=== PATIENT | female | born 1995 | race Caucasian/White ===

== ENCOUNTER 2017-01-25 23:52 | Emergency (ER) | payer SELFPAY ==
[~2017-01-25] VITALS: Ht 167.6 cm; Wt 116.1 kg
[~2017-01-25 23:52] MED LIST: CYCLOBENZAPRINE10 MG PO; IBUPROFEN600 MG PO; IBUPROFEN800 MG PO; LOW-OGESTREL1 EACH PO; ONDANSETRON HCL8 MG PO; PERCOCET 5-3251 EACH PO; SPRINTEC1 EACH PO
[2017-01-26] MEDS ORDERED: AMOXICILLIN875 MG PO (00:06)
== END 2017-01-26 00:23 | disposition home or self-care (01) ==
LOC: ED 23:52
DX: H66.93 Otitis media, unspecified, bilateral (principal); Z88.2 Allergy status to sulfonamides; Z79.899 Other long term (current) drug therapy
CPT/HCPCS: 99283

== ENCOUNTER 2017-05-06 14:52 | Emergency (ER) | payer OTHER ==
[~2017-05-06] VITALS: Ht 167.6 cm; Wt 120.2 kg
[~2017-05-06 14:52] MED LIST changes: +AMOXICILLIN875 MG PO
--- NOTE | 2017-05-07 14:27 | EKG ---
[facility] [address] [facility] [place] [address] Signed Normal sinus rhythm with sinus arrhythmia Normal ECG No previous ECGs available Confirmed by RODOLFO VELEZ MD ([id number]) on 05/07/2017 2:27:00 PM Electronically Signed By: RODOLFO VELEZ MD 05/07/17 1427 PATIENT NAME: SILVANA LUCIA Electrocardiogram DATE OF : [birth year] PHYSICIAN: RODOLFO VELEZ MD REPORT #: [id number] REPORT IS CONFIDENTIAL AND NOT TO BE RELEASED WITHOUT AUTHORIZATION
== END 2017-05-06 18:15 | disposition home or self-care (01) ==
LOC: ED 14:52
DX: R55 Syncope and collapse (principal); Z88.2 Allergy status to sulfonamides; Z79.2 Long term (current) use of antibiotics
CPT/HCPCS: 80053; 84703; 85025; 93005; 93010; 96374; 99284; J2405; J7030

== ENCOUNTER 2017-07-12 12:53 | Emergency (ER) | payer OTHER ==
[~2017-07-12] VITALS: Ht 167.6 cm; Wt 120.2 kg
[2017-07-12] MEDS ORDERED: NORCO 5-325 TA1 EACH PO (16:59)
== END 2017-07-12 17:09 | disposition home or self-care (01) ==
LOC: ED 12:53
DX: R10.31 Right lower quadrant pain (principal); R10.32 Left lower quadrant pain; Z88.2 Allergy status to sulfonamides
CPT/HCPCS: 74177; 80053; 81001; 83690; 84703; 85025; 96360; 99284; J7030; Q9967

== ENCOUNTER 2017-07-15 15:56 | Emergency (ER) | payer SELFPAY ==
[~2017-07-15] VITALS: Ht 167.6 cm; Wt 117.0 kg
[~2017-07-15 15:56] MED LIST changes: +NORCO 5-325 TA1 EACH PO
== END 2017-07-15 16:33 | disposition home or self-care (01) ==
LOC: ED 15:56
DX: S31.133A Puncture wound of abdominal wall without foreign body, right lower quadrant without penetration into peritoneal cavity, initial encounter (principal); Z88.2 Allergy status to sulfonamides; W22.8XXA Striking against or struck by other objects, initial encounter
CPT/HCPCS: 99282

== ENCOUNTER 2019-08-03 19:24 | Emergency (ER) | payer SELFPAY ==
[~2019-08-03] VITALS: Ht 167.6 cm; Wt 113.4 kg
== END 2019-08-03 23:58 | disposition home or self-care (01) ==
LOC: ED 19:24
DX: K92.1 Melena (principal); Z88.2 Allergy status to sulfonamides
CPT/HCPCS: 80053; 81001; 83735; 84703; 85025; 99284; C9803; U0002

== ENCOUNTER 2020-07-14 13:43 | Emergency (ER) | payer OTHER ==
[~2020-07-14] VITALS: Ht 167.6 cm; Wt 129.7 kg
== END 2020-07-14 16:59 | disposition home or self-care (01) ==
LOC: ED 13:43
DX: S93.402A Sprain of unspecified ligament of left ankle, initial encounter (principal); X50.1XXA Overexertion from prolonged static or awkward postures, initial encounter; Y99.0 Civilian activity done for income or pay; Z88.2 Allergy status to sulfonamides
CPT/HCPCS: 73610; 99283-25

== ENCOUNTER 2020-12-30 22:52 | Emergency (ER) | payer SELFPAY ==
[~2020-12-30] VITALS: Ht 167.6 cm; Wt 120.2 kg
[2020-12-30] MEDS ORDERED: METOCLOPRAMIDE10 MG PO (23:24)
== END 2020-12-31 02:46 | disposition home or self-care (01) ==
LOC: ED 22:52
DX: O20.0 Threatened abortion (principal); Z3A.08 8 weeks gestation of pregnancy; Z88.2 Allergy status to sulfonamides
CPT/HCPCS: 76801; 76817; 80053; 81001; 84702; 85025; 86900; 99284-25

== ENCOUNTER 2021-07-22 13:57 | Inpatient (IN) | payer BC ==
[~2021-07-22] VITALS: Ht 167.6 cm; Wt 140.6 kg
[~2021-07-22 13:57] MED LIST changes: +METOCLOPRAMIDE10 MG PO
--- NOTE | 2021-07-22 17:07 | NUR ---
COVID SWAB PERFORMED ON PATIENT WITH NO COMPLICATIONS NOTED
--- NOTE | 2021-07-23 04:06 | PR ---
[facility] [address] [place], [place] [address] Signed Progress Notes IP Datetime Report Generated by CPN: 07/23/2021 04:06 PROGRESS NOTES: [id number] Impression: Normal Progression of Labor; Non-reassuring Heart Rate Procedures: Intrauterine Pressure Catheter; Scalp Electrode Plan: Continue Present Management VITAL SIGNS: [id number] Vital Signs: Reviewed VS Notable Details: hypertension EXAM: [id number] Dilatation: 1.0 Effacement: 90 Station: -3 Contractions: irregular MEMBRANES: [id number] Comments: Suspect she has been having recurrent lates though contractions not picking up well even with the Beaver. Her BPs have been too low after epidural which I suspect began the decels. Her BP is now coming up but will require continued close observation. The IUPC and FSE will allow for better monitoring. FETUS A: [id number] FHR Baseline: 145 Variability: Moderate 6-25bpm Accelerations: 15X15 Decelerations: None FHR Category: Category I Presentation: Vertex Comments on Fetus A: no evidence of metabolic acidosis FETUS B: [id number] Signing Physician: Alexia Badillo MD Copies: ~ *Electronically Signed* 07/23/21 0406 ALEXIA BADILLO MD PATIENT NAME: SILVANA LUCIA PROGRESS NOTE DATE OF : 95 PHYSICIAN: ALEXIA BADILLO MD RPT #: [id number] REPORT IS CONFIDENTIAL AND NOT TO BE RELEASED WITHOUT AUTHORIZATION
--- NOTE | 2021-07-23 04:23 | PR ---
[facility] [address] [facility] [place], [place] [address] Signed Progress Notes IP Datetime Report Generated by CPN: 07/23/2021 04:23 PROGRESS NOTES: [id number] Impression: Non-reassuring Heart Rate Procedures: Intrauterine Pressure Catheter; Scalp Electrode Plan: Continue Present Management Other Plans: subq terb, position change VITAL SIGNS: [id number] Vital Signs: Reviewed VS Notable Details: hypertension EXAM: [id number] Dilatation: 3.0 Effacement: 90 Station: -3 Contractions: irregular MEMBRANES: [id number] Comments: Continuing to be non reasssuring. Will change position again and give subq terb to decrease contractions and allow status to improve. Will continue close observation. FETUS A: [id number] FHR Baseline: 145 Variability: Moderate 6-25bpm Accelerations: 15X15 Decelerations: None FHR Category: Category I Presentation: Vertex Comments on Fetus A: no evidence of metabolic acidosis FETUS B: [id number] Signing Physician: Alexia Badillo MD Copies: ~ *Electronically Signed* 07/23/21 0423 ALEXIA BADILLO MD PATIENT NAME: LEESA RUSSELL,SILVANA MYREE PROGRESS NOTE DATE OF : [birth year] PHYSICIAN: ALEXIA BADILLO MD RPT #: [id number] REPORT IS CONFIDENTIAL AND NOT TO BE RELEASED WITHOUT AUTHORIZATION
--- NOTE | 2021-07-23 04:37 | PR ---
[facility] [address] [place], [place] [address] Signed Progress Notes IP Datetime Report Generated by CPN: 07/23/2021 04:37 PROGRESS NOTES: [id number] Impression: Reassuring Heart Rate Procedures: Intrauterine Pressure Catheter; Scalp Electrode Plan: Continue Present Management Other Plans: subq terb, position change VITAL SIGNS: N1285572 Vital Signs: Reviewed VS Notable Details: hypertension EXAM: [id number] Dilatation: 3.0 Effacement: 90 Station: -3 Contractions: irregular MEMBRANES: [id number] Comments: status reassuring after the recent changes. Will continue close observation. FETUS A: [id number] FHR Baseline: 145 Variability: Moderate 6-25bpm Accelerations: 15X15 Decelerations: None FHR Category: Category I Presentation: Vertex Comments on Fetus A: no evidence of metabolic acidosis FETUS B: [id number] Signing Physician: Alexia Badillo MD Copies: ~ *Electronically Signed* 07/23/21 0437 ALEXIA BADILLO MD PATIENT NAME: SILVANA LUCIA PROGRESS NOTE DATE OF : [birth year] PHYSICIAN: ALEXIA BADILLO MD RPT #: [id number] REPORT IS CONFIDENTIAL AND NOT TO BE RELEASED WITHOUT AUTHORIZATION
--- NOTE | 2021-07-23 06:13 | PR ---
[facility] [address] [facility] [place], [place] [address] Signed Progress Notes IP Datetime Report Generated by CPN: 07/23/2021 06:13 PROGRESS NOTES: [id number] Impression: Normal Progression of Labor; Reassuring Heart Rate Procedures: Sterile Vag Exam Plan: Continue Present Management Other Plans: subq terb, position change VITAL SIGNS: B2291548 Vital Signs: Reviewed VS Notable Details: hypertension EXAM: S5851242 Dilatation: 3.0 Effacement: 90 Station: -3 Contractions: irregular MEMBRANES: [id number] Comments: Some progress but status reassuring overall. Will continue close observation . FETUS A: Z1201944 FHR Baseline: 145 Variability: Moderate 6-25bpm Accelerations: 15X15 Decelerations: None FHR Category: Category I Presentation: Vertex Comments on Fetus A: no evidence of metabolic acidosis FETUS B: [id number] Signing Physician: Alexia Badillo MD Copies: ~ *Electronically Signed* 07/23/21612 ALEXIA BADILLO MD PATIENT NAME: SILVANA LUCIA PROGRESS NOTE DATE OF : [birth year] PHYSICIAN: ALEXIA BADILLO MD RPT #: [id number] REPORT IS CONFIDENTIAL AND NOT TO BE RELEASED WITHOUT AUTHORIZATION
--- NOTE | 2021-07-23 10:20 | PR ---
[facility] [address] [facility] [place], [place] [address] Signed Progress Notes IP Datetime Report Generated by CPN: 07/23/2021 10:20 PROGRESS NOTES: [id number] Impression: Normal Progression of Labor; Reassuring Heart Rate Other Impressions: slow progress Procedures: Sterile Vag Exam Plan: Augmentation Other Plans: subq terb, position change VITAL SIGNS: [id number] Vital Signs: Reviewed VS Notable Details: hypertension EXAM: K7001505 Dilatation: 4.0 Effacement: 90 Station: -2 Contractions: irregular MEMBRANES: K9059450 Comments: Minimal progress. Will begin pit augment. FETUS A: [id number] FHR Baseline: 145 Variability: Moderate 6-25bpm Accelerations: 15X15 Decelerations: None FHR Category: Category I Presentation: Vertex Comments on Fetus A: no evidence of metabolic acidosis FETUS B: [id number] Signing Physician: Alexia Badillo MD Copies: ~ *Electronically Signed* 07/23/21 1020 ALEXIA BADILLO MD PATIENT NAME: SILVANA LUCIA PROGRESS NOTE DATE OF : 95 PHYSICIAN: ALEXIA BADILLO MD RPT #: [id number] REPORT IS CONFIDENTIAL AND NOT TO BE RELEASED WITHOUT AUTHORIZATION
--- NOTE | 2021-07-23 12:35 | PR ---
[facility] [address] [facility] [place], [place] [address] Signed Progress Notes IP Datetime Report Generated by CPN: 07/23/2021 12:35 PROGRESS NOTES: [id number] Impression: Normal Progression of Labor; Reassuring Heart Rate Other Impressions: no progress Procedures: Sterile Vag Exam Plan: Continue Present Management Other Plans: subq terb, position change VITAL SIGNS: R8314996 Vital Signs: Reviewed VS Notable Details: hypertension EXAM: S1795540 Dilatation: 4.0 Effacement: 80 Station: -2 Contractions: irregular MEMBRANES: J1068854 Comments: No progress over last 3 hrs. Will continue to increase pit as needed and continue close observation. FETUS A: [id number] FHR Baseline: 145 Variability: Moderate 6-25bpm Accelerations: 15X15 Decelerations: None FHR Category: Category I Presentation: Vertex Comments on Fetus A: no evidence of metabolic acidosis FETUS B: [id number] Signing Physician: Alexia Badillo MD Copies: ~ *Electronically Signed* 07/23/21 1235 ALEXIA BADILLO MD PATIENT NAME: SILVANA LUCIA PROGRESS NOTE DATE OF : 95 PHYSICIAN: ALEXIA BADILLO MD RPT #: [id number] REPORT IS CONFIDENTIAL AND NOT TO BE RELEASED WITHOUT AUTHORIZATION
--- NOTE | 2021-07-23 14:55 | PR ---
[facility] [address] [facility] [place] [place] [address] Signed Progress Notes IP Datetime Report Generated by CPN: 07/23/2021 14:55 PROGRESS NOTES: [id number] Impression: Arrest of Dilatation/Descent; Reassuring Heart Rate Other Impressions: no progress Procedures: Sterile Vag Exam Plan: Continue Present Management Other Plans: subq terb, position change VITAL SIGNS: P4670205 Vital Signs: Reviewed VS Notable Details: hypertension EXAM: D5500403 Dilatation: 4.0 Effacement: 95 Station: -2 Contractions: irregular MEMBRANES: [id number] Comments: Doing well. Will continue to increase pitocin and change position. FETUS A: [id number] FHR Baseline: 145 Variability: Moderate 6-25bpm Accelerations: 15X15 Decelerations: None FHR Category: Category I Presentation: Vertex Comments on Fetus A: no evidence of metabolic acidosis FETUS B: [id number] Signing Physician: Alexia Badillo MD Copies: ~ *Electronically Signed* 07/23/21 1455 ALEXIA BADILLO MD PATIENT NAME: SILVANA LUCIA PROGRESS NOTE DATE OF : 95 PHYSICIAN: ALEXIA BADILLO MD RPT #: [id number] REPORT IS CONFIDENTIAL AND NOT TO BE RELEASED WITHOUT AUTHORIZATION
--- NOTE | 2021-07-23 17:19 | PR ---
[facility] [address] [place], [place] [address] Signed Progress Notes IP Datetime Report Generated by CPN: 07/23/2021 17:19 PROGRESS NOTES: [id number] Impression: Reassuring Heart Rate Other Impressions: minimal progress, dysfunctional labor pattern Procedures: Sterile Vag Exam Plan: Continue Present Management Other Plans: stop pit for 1 hr and restart VITAL SIGNS: U6676519 Vital Signs: Reviewed VS Notable Details: hypertension EXAM: B1435403 Dilatation: 4.0 Effacement: 95 Station: -2 Contractions: irregular MEMBRANES: [id number] Comments: Minimal change in cervix and labor pattern has deteriorated despite use of pitocin. Will stop pit for 1 hr and then restart to see if effective pattern can be reestablished. FETUS A: [id number] FHR Baseline: 145 Variability: Moderate 6-25bpm Accelerations: 15X15 Decelerations: None FHR Category: Category I Presentation: Vertex Comments on Fetus A: no evidence of metabolic acidosis FETUS B: [id number] Signing Physician: Alexia Badillo MD Copies: ~ *Electronically Signed* 07/23/21 0119 ALEXIA BADILLO MD PATIENT NAME: SILVANA LUCIA PROGRESS NOTE DATE OF : 95 PHYSICIAN: ALEXIA BADILLO MD RPT #: [id number] REPORT IS CONFIDENTIAL AND NOT TO BE RELEASED WITHOUT AUTHORIZATION
--- NOTE | 2021-07-23 19:13 | PR ---
[facility] [address] [facility] [place], [place] [address] Signed Progress Notes IP Datetime Report Generated by CPN: 07/23/2021 19:13 PROGRESS NOTES: [id number] Impression: Reassuring Heart Rate Other Impressions: slow progress Procedures: Sterile Vag Exam Plan: Continue Present Management Other Plans: stop pit for 1 hr and restart VITAL SIGNS: I9931998 Vital Signs: Reviewed VS Notable Details: hypertension EXAM: W7532838 Dilatation: 5.0 Effacement: 95 Station: -2 Contractions: irregular MEMBRANES: E7889977 Comments: Very slow progress. Contractions still not in great pattern since stopping and restarting pitocin. Will continue for now but am concerned about possible need for C/S. FETUS A: [id number] FHR Baseline: 145 Variability: Moderate 6-25bpm Accelerations: 15X15 Decelerations: None FHR Category: Category I Presentation: Vertex Comments on Fetus A: no evidence of metabolic acidosis FETUS B: [id number] Signing Physician: Alexia Badillo MD Copies: ~ *Electronically Signed* 07/23/211912 ALEXIA BADILLO MD PATIENT NAME: SILVANA LUCIA PROGRESS NOTE DATE OF : 95 PHYSICIAN: ALEXIA BADILLO MD RPT #: [id number] REPORT IS CONFIDENTIAL AND NOT TO BE RELEASED WITHOUT AUTHORIZATION
--- NOTE | 2021-07-23 21:29 | PR ---
[facility] [address] [facility] [place], [place] [address] Signed Progress Notes IP Datetime Report Generated by CPN: 07/23/2021 21:29 PROGRESS NOTES: [id number] Impression: Arrest of Dilatation/Descent; Reassuring Heart Rate Other Impressions: slow progress Procedures: Sterile Vag Exam Plan: Continue Present Management Other Plans: continue position changes _ pit VITAL SIGNS: G2515537 Vital Signs: Reviewed VS Notable Details: hypertension EXAM: P3192991 Dilatation: 5.0 Effacement: 95 Station: -2 Contractions: irregular MEMBRANES: O1458770 Comments: Very slow progress. Will continue position changes and increase pit as needed. status reassuring. I would like to avoid C/S given her morbid obesity. FETUS A: Z5051640 FHR Baseline: 145 Variability: Moderate 6-25bpm Accelerations: 15X15 Decelerations: None FHR Category: Category I Presentation: Vertex Comments on Fetus A: no evidence of metabolic acidosis FETUS B: [id number] Signing Physician: Alexia Badillo MD Copies: ~ *Electronically Signed* 07/23/212128 ALEXIA BADILLO MD PATIENT NAME: SILVANA LUCIA PROGRESS NOTE DATE OF : 95 PHYSICIAN: ALEXIA BADILLO MD RPT #: [id number] REPORT IS CONFIDENTIAL AND NOT TO BE RELEASED WITHOUT AUTHORIZATION
--- NOTE | 2021-07-24 00:01 | PR ---
[facility] [address] [facility] [place], [place] [address] Signed Progress Notes IP Datetime Report Generated by RADHAN: 07/24/2021 00:01 PROGRESS NOTES: [id number] Impression: Arrest of Dilatation/Descent; Reassuring Heart Rate Other Impressions: very slow progress Procedures: Sterile Vag Exam Plan: Continue Present Management Other Plans: continue position changes _ pit VITAL SIGNS: W4027689 Vital Signs: Reviewed VS Notable Details: hypertension EXAM: N6479203 Dilatation: 5.5 Effacement: 100 Station: -1 Contractions: irregular MEMBRANES: H2787071 Comments: Some progress. Will continue. FETUS A: Y4635190 FHR Baseline: 145 Variability: Moderate 6-25bpm Accelerations: 15X15 Decelerations: None FHR Category: Category I Presentation: Vertex Comments on Fetus A: no evidence of metabolic acidosis FETUS B: [id number] Signing Physician: Alexia Badillo MD Copies: ~ *Electronically Signed* 07/24/21 0001 ALEXIA BADILLO MD PATIENT NAME: SILVANA LUCIA PROGRESS NOTE DATE OF : 95 PHYSICIAN: ALEXIA BADILLO MD RPT #: [id number] REPORT IS CONFIDENTIAL AND NOT TO BE RELEASED WITHOUT AUTHORIZATION
--- NOTE | 2021-07-24 04:14 | PR ---
[facility] [address] [place], [place] [address] Signed Progress Notes IP Datetime Report Generated by KRISTIAN: 07/24/2021 04:14 PROGRESS NOTES: [id number] Impression: Arrest of Dilatation/Descent; Reassuring Heart Rate Other Impressions: very slow progress Procedures: Sterile Vag Exam Plan: Continue Present Management Other Plans: continue position changes _ pit VITAL SIGNS: L8192707 Vital Signs: Reviewed VS Notable Details: hypertension EXAM: P7551342 Dilatation: 5.5 Effacement: 100 Station: -2 Contractions: irregular MEMBRANES: A2205629 Comments: No progress. I do think C/S will be needed but regardless she is at very high risk for hemorrhage given her prolonged labor. Will start 2nd IV and arrange for blood to be available in any event. Will recheck in an hour and make final preparations for delivery. FETUS A: [id number] FHR Baseline: 145 Variability: Moderate 6-25bpm Accelerations: 15X15 Decelerations: None FHR Category: Category I Presentation: Vertex Comments on Fetus A: no evidence of metabolic acidosis FETUS B: [id number] Signing Physician: Alexia Badillo MD Copies: ~ *Electronically Signed* 07/24/21 0414 ALEXIA BADILLO MD PATIENT NAME: SILVANA LUCIA PROGRESS NOTE DATE OF : 95 PHYSICIAN: ALEXIA BADILLO MD RPT #: [id number] REPORT IS CONFIDENTIAL AND NOT TO BE RELEASED WITHOUT AUTHORIZATION
--- NOTE | 2021-07-24 07:52 | NUR ---
07/24/21 0752 Tiera Acosta 0730 PATIENT BACK INTO [facility] ROOM 105 PATIENT AWAKE. NAUSEA RESOLVED. MASSAGE OF FUNDUS, WNL. DRESSING TO PELVIC C/D/I. MOTHER RESTING BACK INTERESTED IN BABY. 0740 BABY TO BREAST. FUNDUS MASSAGE WNL. VSS BASELINE FOR PATIENT, BP ELEVATED. EPIDURAL AT L5 PATIENT ABLE TO WIGGLE TOES. 0745 100 ML OF YELLOW URINE EMPTIED FROM VICKERS CATHETER. PATIENT REPORTS PAIN 0/10 ON PAIN SCALE. PATIENT AWAKE, BABY. DRESSING C/D/I. FUNDAL CHECK WNL. CALEB PAD SMALL AMOUNT OF RED DRAINAGE. BEDSIDE REPORT TO ESPINOZA RÍOS.
--- NOTE | 2021-07-25 08:44 | PR ---
[facility] [address] [facility] [place], [place] [address] Signed PP Progress Notes Datetime Report Generated by CPN: 07/25/2021 08:44 SUBJECTIVE: [id number] Pain: Within Normal Limits Pain Comments: Nausea has resolved Nausea/Vomiting: Denies Bowel Movement: Yes Vital Signs: [id number] Vital Signs: Reviewed; Within Normal Limits EXAM: Ongoing Cardiovascular: Normal Respiratory: Normal Abdomen/Uterus: Abnormal Lochia: Normal Vulva/Perineum: Not Done Breasts: Not Done CVA Tenderness: Not Done Extremities: Normal Incision: Normal Progress: Abnormal Exam Comments: Abdomen with active BS. Fundus firm, NT @ U-1. H/H 12.1/36.7, WBC 13.3, plat 178k IMPRESSION/PLAN/PROCEDURES: [id number] Impression: Normal Progression Other Plans: ambulate, shower Progress Notes: She is doing well following her surgery and moving w/o difficulty. Baby has had quite a bit of difficulty with sugars, however. Signing Physician: Alexia Badillo MD Copies: ~ *Electronically Signed* 07/25/21 0844 ALEXIA BADILLO MD PATIENT NAME: SILVANA LUCIA PROGRESS NOTE DATE OF : 95 PHYSICIAN: ALEXIA BADILLO MD RPT #: [id number] REPORT IS CONFIDENTIAL AND NOT TO BE RELEASED WITHOUT AUTHORIZATION
--- NOTE | 2021-07-26 07:44 | OR ---
[facility] [address] [place], [place] [address] Signed DATE OF OPERATION: 07/24/2021 SURGEON: Alexia Badillo MD INDUSTRIAL MECHANIC: Dr. Somers. PREOPERATIVE DIAGNOSES: 37+ week , preeclampsia with severe features, arrest of dilation, morbid obesity. POSTOPERATIVE DIAGNOSES: 37+ week , preeclampsia with severe features, arrest of dilation, morbid obesity, delivered. PROCEDURE: Primary section with low segment transverse uterine incision. ANESTHESIA: Epidural. ESTIMATED BLOOD LOSS: 700 mL. DRAINS: Kennedy catheter. INDICATIONS AND FINDINGS: The patient is a 25-year-old female 3, para 0, SAB 2, admitted on the evening of the for induction for severe preeclampsia. She received Cytotec and had spontaneous rupture of membranes at approximately 11:30 that evening. She progressed eventually to 3 cm, however, after many hours of labor including augmentation and internal monitors, she progressed only to 5.5 cm and remained there for over 6 hours. At that point, it was felt that was indicated. At the time of delivery, she has delivered a little girl from the ROP position with Apgars of 9 and 9 and weight of 8 pounds 8 ounces. The uterus, tubes, ovaries, and placenta were normal. DESCRIPTION OF PROCEDURE: The patient was prepped and draped in the supine position. Pannus retractors were used because of her extreme morbid obesity. Incision was made with a knife in the Electronically Signed By: ALEXIA BADILLO MD 07/26/21 0744 PATIENT NAME: SILVANA LUCIA OPERATIVE REPORT DATE OF : [birth year] REPORT #: [id number] PHYSICIAN: ALEXIA BADILLO MD PCP: ALEXIA BADILLO MD REPORT IS CONFIDENTIAL AND NOT TO BE RELEASED WITHOUT AUTHORIZATION [facility] [address] [place], [place] [address] Signed Pfannenstiel area. It was carried down to the fascia with cautery. The fascia was nicked and the fascia was opened sharply. Inferior and superior fascial flaps were then created. The muscles were bluntly divided and the peritoneum was opened sharply and the incision extended superiorly and inferiorly. Mando retractor was placed. The uterine incision was made at the upper aspect of the peritoneal reflection. The baby was delivered with the above findings and handed off to the pediatric staff in attendance. The placenta was removed manually and the uterus explored with a lap tape assuring no remaining fragments. The uterus was closed in 2 layers using 0 Monocryl. The first layer was a running locking stitch and the 2nd was a vertical imbricating stitch. There was a small extension on the patient's left requiring an additional suture laterally. Following this, good hemostasis was noted and the abdomen was copiously irrigated and inspected. Following this, the retractor was removed and the peritoneum identified. Gregor was placed over the incision to aid in hemostasis. The peritoneum was then closed with a running suture of 3-0 Vicryl. The muscles were brought together with interrupted sutures of 0 Vicryl. Bleeding points were controlled with cautery. Irrigation was done and good hemostasis was noted. The remaining Gregor was sprinkled over the muscles to aid in hemostasis. This was followed by ACell powder. The fascia was then closed from each angle to midline with a running suture of 0 Vicryl. The subcu space was irrigated and bleeding points were controlled with cautery. Because of the extreme depth of the subcu, it was closed with interrupted sutures of 3-0 Vicryl. The skin was closed with lucie. All sponge and needle counts were correct. She tolerated the procedure well and was taken to the recovery room in good condition. Alexia Badillo MD PJW/MODL /[id number] cc: Dr. Somers. Copies: ~ Electronically Signed By: ALEXIA BADILLO MD 07/26/21 0744 PATIENT NAME: SILVANA LUCIA OPERATIVE REPORT DATE OF : [birth year] REPORT #: [id number] PHYSICIAN: ALEXIA BADILLO MD PCP: ALEXIA BADILLO MD REPORT IS CONFIDENTIAL AND NOT TO BE RELEASED WITHOUT AUTHORIZATION
--- NOTE | 2021-07-27 09:18 | PR ---
[facility] [address] [facility] [place], [place] [address] Signed PP Progress Notes Datetime Report Generated by CPN: 07/27/2021 09:18 SUBJECTIVE: [id number] Pain: Within Normal Limits Pain Comments: Nausea has resolved Nausea/Vomiting: Denies Bowel Movement: Yes Vital Signs: [id number] Vital Signs: Reviewed Notable Details: intermittent HTN EXAM: Met Cardiovascular: Not Done Respiratory: Not Done Abdomen/Uterus: Abnormal Lochia: Normal Vulva/Perineum: Not Done Breasts: Not Done CVA Tenderness: Not Done Extremities: Normal Incision: Normal Progress: Abnormal Exam Comments: Fundus firm, NT @ U-2. IMPRESSION/PLAN/PROCEDURES: [id number] Impression: Normal Progression Plan: Discharge Other Plans: ambulate, shower Procedures: None Progress Notes: Doing well. She is ready for D/C. Signing Physician: Alexia Badillo MD Copies: ~ *Electronically Signed* 07/27/21917 ALEXIA BADILLO MD PATIENT NAME: SILVANA LUCIA PROGRESS NOTE DATE OF : 95 PHYSICIAN: ALEXIA BADILLO MD RPT #: [id number] REPORT IS CONFIDENTIAL AND NOT TO BE RELEASED WITHOUT AUTHORIZATION
== END 2021-07-27 10:35 | disposition home or self-care (01) | DRG 788 ==
LOC: FBCO 13:57 → LAB 13:57 → FBCO 16:30 → FBC 16:30
PROVIDERS: ADMIT Obstetrics & Gynecology; ATTEND Obstetrics & Gynecology
PROC: 10D00Z1 Extraction of Products of Conception, Low, Open Approach (ICD-10-PCS; principal; 2021-07-24 05:52)
DX: O14.14 Severe pre-eclampsia complicating childbirth (principal); O13.4 Gestational [pregnancy-induced] hypertension without significant proteinuria, complicating childbirth; O99.214 Obesity complicating childbirth; E66.01 Morbid (severe) obesity due to excess calories; O62.1 Secondary uterine inertia; Z3A.37 37 weeks gestation of pregnancy; Z20.822 Contact with and (suspected) exposure to COVID-19; Z37.0 Single live birth; O76 Abnormality in fetal heart rate and rhythm complicating labor and delivery; Z88.2 Allergy status to sulfonamides; Z98.890 Other specified postprocedural states; O99.284 Endocrine, nutritional and metabolic diseases complicating childbirth; E28.2 Polycystic ovarian syndrome; Z90.6 Acquired absence of other parts of urinary tract
CPT/HCPCS: 36415; 59025; 82565; 82570; 84156; 84450; 84520; 84550; 85027; 86850; 86900; 86901; 86922; 87070; 87075; 87205; 87502; A9270; G0463; J1650; J1885; J2274; J2405; J2540; J2550; J2590; J2765; J2795; J3010; J3105; J7121; U0003

== ENCOUNTER 2024-12-12 08:56 | Emergency (ER) | payer BC ==
[~2024-12-12] VITALS: Ht 167.6 cm; Wt 121.7 kg
[~2024-12-12 08:56] MED LIST changes: +ACETAMINOPHEN500 MG PO; +CLEOCIN HCL300 MG PO; +CULTURELLE1 EACH PO; +HIBICLENS118 ML TOP; +IBU600 MG PO
[2024-12-12] MEDS ORDERED: HYDROCODONE/ACETA 7.5/325 TAB PO ONE (09:15)
[2024-12-12] MEDS ORDERED: PENICILLIN V POTASSIUM 500 MG TAB PO ONE (09:15)
[2024-12-12] MEDS ORDERED: PENICILLIN V P500 MG PO (09:20)
[2024-12-12] MEDS ORDERED: HYDROCODON-ACE1 EA11 PO (09:20)
[2024-12-12 09:41] VITALS: BP 151/108
== END 2024-12-12 09:42 | disposition home or self-care (01) ==
LOC: ED 08:56
DX: K08.89 Other specified disorders of teeth and supporting structures (principal); Z88.2 Allergy status to sulfonamides
CPT/HCPCS: 99283; A9270